=== PATIENT | male | born 1985 | race Caucasian/White ===

== ENCOUNTER 2022-02-23 18:44 | Emergency (ER) | payer OTHER, SELFPAY ==
--- NOTE | ~2022-02-23 | XR_ITS ---
EXAMINATION: XR KNEE, LEFT CLINICAL INFORMATION: Left knee injury COMPARISON: None TECHNIQUE: Four views of the left knee. FINDINGS: No acute fracture or subluxation. Compartmental joint spaces are maintained. No joint effusion. The soft tissues are unremarkable. XR/XR knee LT 3V IMPRESSION: No fracture or malalignment.
[2022-02-23 19:57] VITALS: BP 152/87; PULSE 94; RESP 18; TEMP 36.7; O2SAT 97; BMI 38.0
--- NOTE | 2022-02-23 21:00 | ED_ITS ---
HPI - Extremity Injury (Lower) General Chief Complaint: Extremity Injury, Lower Stated Complaint: knee INJ Time Seen by Provider: 02/23/22 20:46 Source: patient Mode of arrival: ambulatory Limitations: no limitations History of Present Illness HPI Narrative: 36 yo male presents to the ER for evaluation of left knee pain. He reports at 4pm he was golfing and when he went to swing the club he twisted his knee, heard a pop and crack and had immediate pain. He reports history of injury in the same knee several years ago, possible MCL tear but no surgery. He reports he can walk but with some pain. Last week he was feeling pain in the left knee in the posterior and lateral aspects that he thought was water on the knee. He denies any other injuries sustained today. MD complaint: knee injury Onset (ago): hour(s) Injury: Left: knee Type of Injury: inversion Place: street/outdoors Severity: moderate Severity scale (1-10): 5 Relieving factors: immobilization and rest Exacerbating factors: weight bearing, movement and palpation Context: other (twisting) Associated symptoms: snap/pop sensation, swelling and ambulatory Other symptoms: none Related Data Home Medications Medication Instructions Recorded Confirmed No Known Home Meds 05/15/20 05/15/20 Allergies Allergy/AdvReac Type Severity Reaction Status Date / Time No Known Allergies Allergy Verified 02/23/22 19:57 [No Known Allergies*] Review of Systems Review of Systems: Constitutional: No Fever, No Chills ENT/Mouth: No sore throat Cardiovascular: No Chest Pain, No SOB Gastrointestinal: No Nausea, No Vomiting Musculoskeletal: + joint pain, No Myalgias Skin: No Skin Lesions, No rash Neuro: No Weakness, No Numbness Heme/Lymph: No Bruising, No Lymphadenopathy PMFSH Past Medical History Medical History (Updated 02/23/22 @ 21:02 by KARLA Swan) Pneumonia Family History Family History (Updated 05/15/20 @ 14:55 by Cassandra Fraser RN) Maternal Grandfather Diabetes Mother Diabetes Social History Social History (Updated 05/15/20 @ 14:57 by Cassandra Fraser RN) Household Members: Children Housing: Apartment Are you a primary small animal caretaker to a significant other at home: No Do you presently have visiting nurse or other home services: No Substance Use Type: Marijuana Advance Directives: No Advance Directives Information Provided: No service: No Current occupational status: employed Current occupation: shipping & receiving Physical Exam Vital Signs: Vital Signs: Last Vital Signs Temp 98.0 F 02/23/22 19:57 Pulse 94 02/23/22 19:57 Resp 18 02/23/22 19:57 BP 152/87 H 02/23/22 19:57 Pulse Ox 97 02/23/22 19:57 O2 Del Method 02/23/22 19:57 BMI result Body Mass Index 38.0 Appearance: Alert. Oriented X3. No acute distress. HEENT: normal inspection CVS: Normal heart rate and rhythm. Pulses normal. Respiratory: No respiratory distress. Skin: Skin warm and dry. Normal skin color. Normal skin turgor. No rashes. Extremities: Mild generalized swelling of the left knee, no ecchymosis. tendern ess along the medial joint line, no appreciated effusion. patella intact. pain with flexion at 75 degrees or so. able to fully extend. NV Intact distally. no calf tenderness. no ankle tenderness or swelling. Neuro: Oriented X 3. No motor deficit. No sensory deficit. slightly antalgic gait Course Course Course Narrative: 36 yo male presenting with left knee pain sustained while playing golf. Rotation injury with audible pop. Ambulating but with some discomfort. He reports a history of a partial MCL tear in the past but never saw an orthopedic doctor or had an MRI, no sugeries. XR today is normal. Exam is revealing for medial joint line tenderness, +pain with valgus stress, no appreciated joint laxity on exam. Concern for ligamentous injury. Will place is SCAR for compression/support, WBAT and refer to Ortho for further evaluation. Patient agrees with plan. Antoine for d/c. Critical Care Time Critical Care Time Critical Care Time: No Discharge Plan Discharge Clinical Impression: Acute knee pain Patient Disposition: Home, Self-Care Instructions: Knee Pain (ED) Additional Instructions: Your x-ray today is normal. There is concern for a possible ligament injury Recommend following up with Orthopedics for further evaluation and treatment. Name and number below. Take Motrin and/or Tylenol as needed for pain. Wear the provided SCAR wrap for compression and support. Ice and elevate your knee when possible. If you develop new or worsening symptoms call 911 or come back to the ER for further evaluation. Prescriptions: No Action No Known Home Meds Referrals: Silvano Palomares PA-C [[facility]] - (left knee pain, concern for ligamentous injury) Stand Alone Forms: Work/School Release
== END 2022-02-23 21:21 | disposition home or self-care (01) ==
PROVIDERS: Emergency Provider Internal Medicine
DX: M25.562 Pain in left knee (principal)
CPT/HCPCS: 73562; 99282; 99283

== ENCOUNTER 2022-03-03 05:52 | Outpatient (REF) | payer OTHER, SELFPAY ==
--- NOTE | ~2022-03-03 | XR_ITS ---
EXAMINATION: XR KNEE, LEFT XR KNEE, STANDING, BILATERAL CLINICAL INFORMATION: Pain right knee. COMPARISON: None TECHNIQUE: AP bilateral standing view of the knees was obtained. Right knee 1 view. FINDINGS: AP BILATERAL KNEE: There is normal symmetry of medial and lateral compartment joint space both knees. No bony erosive changes seen. Suspect a small bone fragment or loose body along the lateral compartment left knee. LEFT KNEE: Single sunrise view left knee reveals a normal patellofemoral joint space. No bony erosive changes seen. There is medial patellar moderate size enthesophyte. XR/XR knee LT 1V IMPRESSION: Moderate-sized medial patellar enthesophyte, stable. No visible fracture or dislocation. Medial and lateral compartment joint space is maintained in both knees. Suspect a small loose body along the lateral compartment left knee on AP view.
--- NOTE | ~2022-03-03 | XR_ITS ---
EXAMINATION: XR KNEE, LEFT XR KNEE, STANDING, BILATERAL CLINICAL INFORMATION: Pain right knee. COMPARISON: None TECHNIQUE: AP bilateral standing view of the knees was obtained. Right knee 1 view. FINDINGS: AP BILATERAL KNEE: There is normal symmetry of medial and lateral compartment joint space both knees. No bony erosive changes seen. Suspect a small bone fragment or loose body along the lateral compartment left knee. LEFT KNEE: Single sunrise view left knee reveals a normal patellofemoral joint space. No bony erosive changes seen. There is medial patellar moderate size enthesophyte. XR/XR knee standing BI IMPRESSION: Moderate-sized medial patellar enthesophyte, stable. No visible fracture or dislocation. Medial and lateral compartment joint space is maintained in both knees. Suspect a small loose body along the lateral compartment left knee on AP view.
== END 2022-03-03 05:53 | disposition home or self-care (01) ==
LOC: HO.HOSX 05:52
PROVIDERS: Visit Provider Physician Assistant
DX: M25.562 Pain in left knee (principal); M25.561 Pain in right knee
CPT/HCPCS: 73560; 73565

== ENCOUNTER 2022-03-23 15:45 | Outpatient (REF) | payer OTHER, SELFPAY ==
--- NOTE | ~2022-03-23 | MR_ITS ---
EXAMINATION: MR KNEE WITHOUT CONTRAST, LEFT CLINICAL INFORMATION: Left knee pain following a twisting injury. Osteoarthritis. COMPARISON: Most recent left knee radiographs dated 03/03/2022. TECHNIQUE: MRI of the knee without contrast was performed using routine sequences on a high-field scanner. FINDINGS: MENISCI: Medial Meniscus: Intact Lateral Meniscus: Intact LIGAMENTS: Cruciate: Intact Collateral: Intact EXTENSOR MECHANISM: No patella jaspreet. Normal TT-TG distance. Intact quadriceps and patellar tendons. No evidence of acute medial or lateral patellofemoral ligament injury. Patella currently well seated within the trochlea. 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 ARTICULAR CARTILAGE/BONE: Patellofemoral Compartment: Full-thickness articular cartilage defect at the mediopatellar facet with underlying cortical irregularity. Full-thickness loss extending into the patellar median ridge where there is subchondral cystic change. Marrow edema at the lateral aspect of the lateral femoral condyle consistent with a mild osseous contusion. Medial Compartment: Normal. Lateral Compartment: Normal. JOINT FLUID AND BURSAE: Small joint effusion. Superomedial loose body measuring 0.4 x 1.1 x 1.0 cm. MR/MR knee LT wo con IMPRESSION: 1. Findings consistent with a remote lateral patellar dislocation including an articular cartilage defect at the inferomedial patella with underlying cortical irregularity as well as a mild osseous contusion at the lateral aspect of the lateral femoral condyle. No acute fracture. Patella currently well seated within the trochlea. Shallow trochlear depth, consistent with dysplasia. Intact medial patellofemoral ligament. 2. Small joint effusion with a superomedial loose body measuring up to 1.1 cm.
== END 2022-03-23 15:46 | disposition home or self-care (01) ==
LOC: HO.MRI 15:45
PROVIDERS: Visit Provider Physician Assistant
DX: M17.12 Unilateral primary osteoarthritis, left knee (principal); M23.90 Unspecified internal derangement of unspecified knee
CPT/HCPCS: 73721

== ENCOUNTER → 2022-11-15 11:00 | Outpatient (BNVA) | payer OTHER, SELFPAY | PROVIDERS: Visit Provider Internal Medicine | DX: M54.50 Low back pain, unspecified (principal) | CPT/HCPCS: 99202 ==

== ENCOUNTER → 2022-11-18 13:01 | Outpatient (BNVA) | payer OTHER, SELFPAY | PROVIDERS: Visit Provider Internal Medicine | DX: M54.41 Lumbago with sciatica, right side (principal) | CPT/HCPCS: 99213 ==

== ENCOUNTER → 2024-03-26 13:58 | Outpatient (RCR) | payer OTHER, SELFPAY ==
[2020-05-15 14:46] VITALS: BP 123/83; PULSE 88; RESP 20; TEMP 36.7; O2SAT 96
[2020-05-15 14:48] VITALS: BMI 42.4
[2020-05-15 14:48] LABS: MANUAL DIFF FLAG NO
[2020-05-15 15:01] LABS: Basophils Percent Auto 0.4 % (0-2); Eosinophils Absolute Auto 0.1 X10*3/uL (0.0-0.4); Eosinophils Percent Auto 1.9 % (0-4); Hematocrit 41.3 % (42-52); Hemoglobin 13.9 g/dl (14.0-18.0); Imm Gran Abs Auto 0.04 X10*3/uL (0.00-0.03); Imm Gran Pct Auto 0.6 % (0.0-0.4); Lymphocytes Absolute Auto 1.5 X10*3/uL (1.2-4.9); Lymphocytes Percent Auto 22.5 % (20-40); Mean Corpuscular HGB Conc 33.7 g/dl (31.0-36.0); Mean Corpuscular Volume 83.3 fL (80-98); Mean Platelet Volume 10.2 fL (9.4-12.4); Monocytes Absolute Auto 0.5 X10*3/uL (0.1-1.2); Monocytes Percent Auto 7.7 % (2-11); Neutrophils Absolute Auto 4.5 X10*3/uL (2.0-8.3); Neutrophils Percent Auto 66.9 % (45-73); Platelet Count 317 X10*3/uL (160-400); Red Blood Count 4.96 X10*6/uL (4.60-5.80); Red Cell Distribution Width 12.3 % (11.0-16.0); White Blood Count 6.8 X10*3/uL (4.8-10.8)
--- NOTE | 2020-05-15 15:01 | P.PNHO_ITS ---
Medical Summary - Medical Summary Chief complaint: follow-up for: Hilar adenopathy. Medical Summary: DIAGNOSIS: HILAR ADENOPATHY. Interval History Interval history: This is a pleasant 35 year old gentleman with a history of smoking, Cannabis/Cociane use intermittently. He is here for a follow-up visit. He tells me he has been feeling pretty good. Sometimes he feels rather fatigued, especially 1st thing in the morning. it could be that he did not sleep too well. A couple of nights he felt reflux and was gasping for air. He is now back to his usual routine. He denies any chest pain or trouble breathing. no abdominal pain nausea vomiting heartburn indigestion. Bowels are working without any gross blood in it. He has a good appetite. He has gained weight. However he has been eating smaller meals more frequently. Denies any further fevers nor chills. He had presented to the hospital, on April 02, with SOB, generalized weakness, Fatigue, and headaches, for four days. He denied any chest pain, palpitations, lightheadedness, dizziness, headaches, numbness nor tingling. He did mention diarrhea but no nausea vomiting nor abdominal pain. Cat scan revealed: Moderate sized infiltrate in the left lower lobe. Exam is otherwise unremarkable with the exception of some minimal atelectasis at the mid lung zone on the right anterior. Enlarged right hilum is probable reactive adenopathy and some enlarged mediastinal nodes are seen as well. Of course underlying malignancy cannot be excluded and therefore follow-up would be recommended to assess for resolution. He was given abx; Testing for COVID was sent. This came back negative. He improved and was sent home on April 03, on Ceftin and azithromycin for 6 days. Review of Systems - Constitutional Reports system reviewed and no additional complaints, except as documented, Reports fatigue, Reports malaise - Eyes Reports system reviewed and no additional complaints, except as documented - ENT Reports system reviewed and no additional complaints, except as documented - Cardiovascular Reports system reviewed and no additional complaints, except as documented - Respiratory Reports no additional respiratory complaints, Denies chest congestion - Gastrointestinal Reports system reviewed and no additional complaints, except as documented, Denies loose stools - Musculoskeletal Reports system reviewed and no additional complaints, except as documented - Integumentary/Breasts Skin/Breast: Reports no additional skin complaints - Neurologic Reports system reviewed and no additional complaints, except as documented - Psychiatric Reports system reviewed and no additional complaints, except as documented [facility] Medical History: Medical History (Last Updated 05/15/20 @ 15:25 by Tico Drew MD) Pneumonia Functional capacity: independent ambulation Patient : No Family History: Family History (Last Updated 05/15/20 @ 14:55 by Cassandra Fraser RN) Maternal Grandfather Diabetes Mother Diabetes Smoking status: Current some day smoker Home Medications and Allergies Home Medications Medication Instructions Recorded Confirmed Type No Known Home Meds 05/15/20 05/15/20 History Allergies Allergy/AdvReac Type Severity Reaction Status Date / Time No Known Allergies Allergy Unverified 04/16/20 16:42 [No Known Allergies*] Exam Vital signs: Vital Signs Temp 98.0 F 05/15/20 14:46 Pulse 88 05/15/20 14:46 Resp 20 05/15/20 14:46 BP 123/83 05/15/20 14:46 Pulse Ox 96 05/15/20 14:46 Intake & Output 05/14/20 05/15/20 05/15/20 18:59 06:59 18:59 Other: Weight 142 kg Weight 142 kg Body Mass Index 42.4 - Constitutional Present: no acute distress - Routine HEENT Exam Head: Present: normal inspection ENT: Present: mucous membranes moist - Routine Neck Exam Present: full ROM - Routine Chest/Breast/Axilla Exam Chest wall: Absent: tenderness - Routine Respiratory Exam Present: CTAB - Routine Cardiovascular Exam Cardiovascular: Present: RRR, S1, S2 - Routine Abdominal Exam Present: soft, nontender - Routine Rectal Exam Patient deferred: digital exam - Routine Extremities Exam Present: nontender - Routine Back/Spine/Pelvis Exam Back/Spine: Present: full ROM - Routine Skin Exam Present: intact - Routine Neurological Exam Present: alert, oriented X3 - Detailed Neurological Exam: Coma Scale Eye Opening: Spontaneous (4) Data - Labs CBC & Chem 7: 05/15/20 14:38 05/15/20 14:38 Progress Note: A/P (1) Hilar adenopathy Status: Acute Assessment and plan: This is a pleasant 35-year-old gentleman who was admitted with what appears to be a Pneumonia. He was treated with oral antibiotics and steroids, taper. CT scan raised concern for right hilar and mediastinal adenopathy. Differential diagnosis: Malignancy: Hodgkin's Lymphoma, Non Hodgkin's Lymphoma versus Lung Cancer. Versus reactive picture related to the Pneumonia. repeat chest x-ray was done 3 weeks ago which revealed resolving pneumonia. however did not shed light on the hilar adenopathy. PLAN: I will repeat a CT scan of the chest for further evaluation. He does not have a primary care doctor. I recommended that he see Néstor. Thank you, CC: Néstor Dowling. (2) Hilar adenopathy Status: Acute - Time Spent With Patient Total time spent is greater than 50% in coordination of care (as documented) at patient's floor/unit and/or counseling patient: 25 - 35 minutes
--- NOTE | 2020-05-15 15:11 | MHC.HEMONC ---
Patient here for follow up today. States he feels well. Repeat xrays were improved per Dr. Drew. Pt was previously supposed to receive CT scan but insurance denied it. RN to follow up with Aga to see if we can resubmit. Labs were WNL for patient and follow up was scheduled.
[2020-05-15 15:51] LABS: Ferritin 223 ng/mL (20-250)
[2020-05-15 15:54] LABS: Alanine Aminotransferase 24 U/L (0-40); Albumin Level 4.4 g/dL (3.5-5.0); Alkaline Phosphatase 101 U/L (39-117); Anion Gap 9 (12-20); Aspartate Amino Transferase 15 U/L (5-37); Bilirubin Total 0.3 mg/dL (0.0-1.0); Blood Urea Nitrogen 8 mg/dL (9-16); Calcium 9.7 mg/dL (8.4-10.2); Carbon Dioxide 31 mmol/L (22-29); Chloride 104 mmol/L (96-108); Creatinine Clr Calc Pharmacy 126.3; Estimated Glomerular Filt Rate > 60; Glucose Random 94 mg/dL (60-115); Potassium 4.9 mmol/l (3.3-5.1); Sodium 139 mmol/L (135-145); Total Protein 6.9 g/dL (6.5-8.0)
--- NOTE | 2020-06-17 16:17 | MHC.HEMONCMA ---
On 05/24/20 LM at [facility]'s referral line at [phone] requesting ins referral. On 06/11/20 Spoke with Rob Blake and she told me that PCP's office, Néstor Dowling, has to call them directly to request insurance referral. I called and spoke to Desiree at [facility] and she said that the patient has to call his insurance company and tell them he has selected Néstor Dowling as his PCP. Desiree told me she would call patient to let him know he needs to do this. I also called and left message for patient letting him know he needs to do this in order to get authorization. As of 06/17/20 he has not returned my call and we haven't received referral for his 05/15/20 visit. Patient might get billed for this visit and PCP made him aware.
== END | disposition home or self-care (01) ==
LOC: HO.ONC 05-15 14:18
PROVIDERS: PCP Nurse Practitioner Family; Visit Provider Internal Medicine Medical Oncology
DX: R59.0 Localized enlarged lymph nodes (principal)
CPT/HCPCS: 36415; 80053; 82728; 85025; 99214